=== PATIENT | male | born 1985 | race Caucasian/White ===

== ENCOUNTER → 2019-09-30 | Outpatient (CLI) | payer OTHER ==
[~2019-09-30] MED LIST: BUPR150T3 PO; FLUO40CA PO; LISI-538 PO
--- NOTE | 2019-09-30 12:15 | ECGEPIP ---
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
== END ==
LOC: M EKG 11:53
PROVIDERS: ATTEND Anesthesiology
DX: Z01.818 Encounter for other preprocedural examination (principal); R03.0 Elevated blood-pressure reading, without diagnosis of hypertension

== ENCOUNTER 2019-10-03 08:55 | Day surgery (SDC) | payer OTHER ==
[~2019-10-03] VITALS: Ht 180.3 cm; Wt 129.0 kg
[2019-10-03] MEDS ORDERED: fentaNYL 250 MCG/5 ML INJECTION (J3010) As Ordered ONE (11:50)
[2019-10-03] MEDS ORDERED: MIDAZOLAM INJ 2 MG/2 ML VIAL (J2250) As Ordered ONE (11:50)
[2019-10-03] MEDS ORDERED: propofoL 200 MG/20 ML VIAL As Ordered ONE (11:51)
[2019-10-03] MEDS ORDERED: ROCURONIUM BROMIDE 50 MG/5 ML VIAL As Ordered ONE (11:52)
[2019-10-03] MEDS ORDERED: dexameTHASONE 4 MG/ML 1ML VIAL (J1100) As Ordered ONE (11:53)
[2019-10-03] MEDS ORDERED: LIDOCAINE 2% INJ 100 MG/5 ML SDV (FOR ANES.) As Ordered ONE (11:53)
[2019-10-03] MEDS ORDERED: OXYMETAZOLINE NASAL SPRAY (AFRIN) As Ordered ONE (11:55)
[2019-10-03] MEDS ORDERED: METHYLENE BLUE 0.5% (5MG/ML) 10 ML AMP (PROVAYBLUE)(Q9968 PER 1MG) As Ordered ONE (11:55)
[2019-10-03] MEDS ORDERED: LIDOCAINE W/EPINEPHRINE 1% 20ML VIAL As Ordered ONE (11:55)
[2019-10-03] MEDS ORDERED: ACETAMINOPHEN 1000MG 100ML IV BTL (OFIRMEV) (J0131 PER 10MG) As Ordered ONE (12:43)
[2019-10-03] MEDS ORDERED: SUGAMMADEX SODIUM 500 MG/5 ML VIAL (BRIDION) As Ordered ONE (12:44)
[2019-10-03] MEDS ORDERED: ePHEDrine SULFATE 25 MG/5 ML(5MG/ML) SYRINGE As Ordered ONE (13:37)
[2019-10-03] MEDS ORDERED: fentaNYL 100 MCG/2 ML INJECTION (J3010) As Ordered ONE (13:57)
[2019-10-03] MEDS: fentaNYL 100 MCG/2 ML INJECTION (J3010) IV PRN ×4 (13:59→14:19)
[2019-10-03] MEDS ORDERED: oxyCODONE 5MG TAB PO PRN (14:00)
[2019-10-03] MEDS ORDERED: LR 1,000 ML IV SCH (14:00)
[2019-10-03] MEDS ORDERED: ONDANSETRON 4MG/2ML VIAL (J2405) IV PRN (14:00)
[2019-10-03] MEDS: HYDROMORPHONE HCL 0.5 MG/ 0.5 ML SYRINGE (J1170 PER 1) IV PRN ×4 (14:28→14:55)
[2019-10-03] MEDS ORDERED: IBUPROFEN 800 MG TAB PO PRN (15:16)
[2019-10-03] MEDS ORDERED: PERCOCET 5MG/325MG TAB PO PRN (15:16)
[2019-10-03 15:40] VITALS: BP 143/91
== END 2019-10-03 15:45 | disposition home or self-care (01) ==
LOC: M SDC 08:55
PROVIDERS: ATTEND Specialist
DX: J34.2 Deviated nasal septum (principal); I10 Essential (primary) hypertension; K21.9 Gastro-esophageal reflux disease without esophagitis; F41.9 Anxiety disorder, unspecified; F32.9 Major depressive disorder, single episode, unspecified; G43.909 Migraine, unspecified, not intractable, without status migrainosus; F17.220 Nicotine dependence, chewing tobacco, uncomplicated; Z79.899 Other long term (current) drug therapy
CPT/HCPCS: 30140; 30520; 88300; J0131; J1100; J1170; J2250; J3010; Q9968

== ENCOUNTER 2021-11-15 07:42 | Emergency (ER) | payer OTHER, SELFPAY ==
[~2021-11-15] VITALS: Ht 180.3 cm; Wt 118.2 kg
[~2021-11-15 07:42] MED LIST changes: +BUPR150T12 PO; -BUPR150T3 PO; -LISI-538 PO; +LISI20TA33 PO
[2021-11-15] MEDS ORDERED: BUSP15TA47 PO (07:54)
[2021-11-15] MEDS ORDERED: VENL75CA47 PO (07:54)
[2021-11-15 09:10] LABS: AMPHETAMINES LEVEL URINE NEGATIVE (NEGATIVE); BARBITURATES URINE NEGATIVE (NEGATIVE); BENZODIAZEPINES URINE NEGATIVE (NEGATIVE); CANNABINOIDS URINE POSITIVE (NEGATIVE); COCAINE METABOLITE URINE NEGATIVE (NEGATIVE); METHADONE URINE NEGATIVE (NEGATIVE); OPIATES URINE NEGATIVE (NEGATIVE); PHENCYCLIDINE URINE NEGATIVE (NEGATIVE)
[2021-11-15 09:19] LABS: HEMATOCRIT 46.2 % (42.0-52.0); HEMOGLOBIN 15.8 g/dl (13.5-17.5); MEAN CORPUSCULAR HEMOGLOBIN 30.2 pg (27.0-33.0); MEAN CORPUSCULAR HGB CONC 34.2 g/dl (32.0-36.5); MEAN CORPUSCULAR VOLUME 88.2 fl (80.0-96.0); PLATELET COUNT, AUTOMATED 252 10^3/uL (150-450); RED BLOOD COUNT 5.24 10^6/uL (4.30-6.10); WHITE BLOOD COUNT 11.1 10^3/uL (4.0-10.0)
[2021-11-15 09:20] LABS: RSV AMPLIFICATION NEGATIVE (NEGATIVE)
[2021-11-15 09:47] LABS: ACETAMINOPHEN LEVEL < 2.0 UG/ML (10.0-30.0); ALBUMIN 4.5 GM/DL (3.2-5.2); ALT/SGPT 39 U/L (12-78); BILIRUBIN,DIRECT 0.2 MG/DL (0.0-0.2); BILIRUBIN,TOTAL 0.8 MG/DL (0.2-1.0); BLOOD UREA NITROGEN 15 MG/DL (7-18); CALCIUM LEVEL 9.4 MG/DL (8.5-10.1); CARBON DIOXIDE LEVEL 27 MEQ/L (21-32); CHLORIDE LEVEL 106 MEQ/L (98-107); CREATININE FOR GFR 1.17 MG/DL (0.70-1.30); ETHYL ALCOHOL (ETHANOL) < 0.003 % (0.000-0.010); GLOMERULAR FILTRATION RATE > 60.0 (>60); GLUCOSE, FASTING 137 MG/DL (70-100); POTASSIUM SERUM 3.8 MEQ/L (3.5-5.1); SALICYLATE LEVEL < 1.7 MG/DL (5.0-30.0); SODIUM LEVEL 141 MEQ/L (136-145); THYROID STIMULATING HORMONE 0.583 uIU/ML (0.358-3.740); TOTAL PROTEIN 7.3 GM/DL (6.4-8.2)
[2021-11-15] MEDS ORDERED: LORazepam 2 MG TAB PO STA (12:12)
[2021-11-15] MEDS ORDERED: OLANZapine ORAL DISINTEGRATING TAB 5MG PO ONE (14:50)
[2021-11-15] MEDS ORDERED: FAMO1TAB11 PO (18:13)
[2021-11-15] MEDS ORDERED: ALBU8.5H INH (18:13)
[2021-11-15] MEDS ORDERED: COMMENTS (18:15)
[2021-11-15] MEDS ORDERED: HOME MED LIST COMPLETE! XX SCH (18:15)
[2021-11-16 04:12] LABS: APPEARANCE, URINE HAZY (CLEAR); BACTERIA, URINE AUTO NEGATIVE (NEGATIVE); BILIRUBIN, URINE AUTO NEGATIVE (NEGATIVE); BLOOD, URINE BLOOD NEGATIVE (NEGATIVE); COLOR, URINE AMBER (YELLOW); GLUCOSE, URINE (UA) AUTO NEGATIVE (NEGATIVE); KETONE, URINE AUTO TRACE mg/dL (NEGATIVE); LEUKOCYTE ESTERASE, URINE AUTO NEGATIVE (NEGATIVE); MUCUS, URINE SMALL (NEGATIVE); NITRITE, URINE AUTO NEGATIVE (NEGATIVE); PROTEIN, URINE AUTO 1+ mg/dL (NEGATIVE); RBC, URINE AUTO 1 /HPF (0-3); SQUAMOUS EPITHELIAL CELL UR AU 0 /HPF (0-6); WBC, URINE AUTO 0 /HPF (0-3)
[2021-11-16] MEDS ORDERED: IBUPROFEN 800 MG TAB PO ONE ×4 (05:15→18:40)
[2021-11-16] MEDS: busPIRone 5 MG TAB PO SCH ×2 (08:32→18:41)
[2021-11-16] MEDS ORDERED: FAMOTIDINE 20 MG TAB PO SCH (09:00)
[2021-11-16] MEDS ORDERED: VENLAFAXINE **XR** 75MG CAPSULE PO SCH (09:00)
[2021-11-16] MEDS ORDERED: NICOTINE 21MG/24HR 1 EA TRANSDERMAL TD ONE (11:35)
[2021-11-16] MEDS ORDERED: ANALGESIC BALM CRM 3OZ TOP SCH (12:00)
[2021-11-16] MEDS: ANALGESIC BALM CRM 3OZ TOP SCH ×3 (12:33→18:41)
[2021-11-16] MEDS: ACETAMINOPHEN 325 MG TAB PO ONE ×2 (13:20→13:35)
[2021-11-16 18:59] VITALS: BP 146/9
== END 2021-11-16 19:01 ==
LOC: M ED 07:42
DX: F31.5 Bipolar disorder, current episode depressed, severe, with psychotic features (principal); F32.9 Major depressive disorder, single episode, unspecified; F43.10 Post-traumatic stress disorder, unspecified; F12.10 Cannabis abuse, uncomplicated; Z81.8 Family history of other mental and behavioral disorders

== ENCOUNTER → 2022-06-18 | Outpatient (CLI) | payer OTHER ==
[~2022-06-18] MED LIST changes: +ALBU8.5H INH; +BUSP15TA47 PO; +COMMENTS; +FAMO1TAB11 PO; +VENL75CA47 PO
== END ==
LOC: M PAIN 08:00
PROVIDERS: ATTEND Nurse Practitioner Family
DX: M54.16 Radiculopathy, lumbar region (principal); Z79.899 Other long term (current) drug therapy

== ENCOUNTER → 2022-07-14 | Outpatient (CLI) | payer OTHER | LOC: M PAIN 14:30 | PROVIDERS: ATTEND Anesthesiology | DX: M47.816 Spondylosis without myelopathy or radiculopathy, lumbar region (principal); M54.50 Low back pain, unspecified; Z79.899 Other long term (current) drug therapy ==

== ENCOUNTER → 2022-08-26 | Outpatient (CLI) | payer OTHER | LOC: M PAIN 15:30 | PROVIDERS: ATTEND Anesthesiology | DX: M79.18 Myalgia, other site (principal); M47.816 Spondylosis without myelopathy or radiculopathy, lumbar region; G89.29 Other chronic pain; E66.01 Morbid (severe) obesity due to excess calories; Z68.41 Body mass index [BMI] 40.0-44.9, adult; Z79.899 Other long term (current) drug therapy ==

== ENCOUNTER → 2022-11-03 | Outpatient (CLI) | payer OTHER | LOC: M LABSMTC 11:50 | PROVIDERS: ATTEND Anesthesiology | DX: Z11.52 Encounter for screening for COVID-19 (principal) ==

== ENCOUNTER → 2022-11-03 | Outpatient (CLI) | payer OTHER | LOC: M PAIN 16:00 | PROVIDERS: ATTEND Anesthesiology | DX: Z53.8 Procedure and treatment not carried out for other reasons (principal) ==

== ENCOUNTER → 2022-11-19 | Outpatient (CLI) | payer OTHER ==
[~2022-11-19] MED LIST changes: +CEPH500C PO
== END ==
LOC: M PAIN 16:30
PROVIDERS: ATTEND Anesthesiology
DX: M79.18 Myalgia, other site (principal); Z79.899 Other long term (current) drug therapy

== ENCOUNTER 2022-11-26 11:03 | Emergency (ER) | payer OTHER ==
[~2022-11-26] VITALS: Ht 180.3 cm; Wt 127.3 kg
[~2022-11-26 11:03] MED LIST changes: -CEPH500C PO
[2022-11-26 11:07] VITALS: BP 138/92
[2022-11-26] MEDS ORDERED: IBUPROFEN 800 MG TAB PO ONE (12:45)
[2022-11-26] MEDS ORDERED: BOOSTRIX/ADACEL VACCINE (DIPHTH/PERTUSS/ACELL/TETANUS) 0.5ML SYR IM ONE (12:45)
[2022-11-26] MEDS ORDERED: LIDOCAINE 1% MDV 20ML VIAL INFIL ONE (13:20)
[2022-11-26] MEDS ORDERED: CEPH500C PO (13:50)
[2022-11-26] MEDS ORDERED: NEOSPORIN OINT 0.9 GM PKT TOP ONE (14:00)
== END 2022-11-26 14:10 | disposition home or self-care (01) ==
LOC: M ED 11:03
DX: S61.211A Laceration without foreign body of left index finger without damage to nail, initial encounter (principal); W23.1XXA Caught, crushed, jammed, or pinched between stationary objects, initial encounter; Y93.89 Activity, other specified; Y99.0 Civilian activity done for income or pay; I10 Essential (primary) hypertension; G47.33 Obstructive sleep apnea (adult) (pediatric); F41.9 Anxiety disorder, unspecified; F32.9 Major depressive disorder, single episode, unspecified; Z79.899 Other long term (current) drug therapy

== ENCOUNTER → 2024-07-21 | Outpatient (CLI) | payer OTHER ==
[~2024-07-21] MED LIST changes: +CEPH500C PO
== END ==
LOC: M PLARAD 15:01
PROVIDERS: ATTEND Family Medicine
DX: M51.16 Intervertebral disc disorders with radiculopathy, lumbar region (principal)

== ENCOUNTER 2024-10-23 17:10 | Emergency (ER) | payer OTHER ==
[~2024-10-23] VITALS: Ht 180.3 cm; Wt 117.1 kg
[2024-10-23 17:12] VITALS: BP 136/79; TEMP 99.9; O2SAT 97
[2024-10-23 19:39] LABS: BASO # 0.1 10^3/uL (0.0-0.2); BASO % 0.7 % (0.0-1.0); EOS # 0.1 10^3/uL (0.0-0.5); HEMATOCRIT 44.7 % (42.0-52.0); HEMOGLOBIN 15.5 g/dl (13.5-17.5); LYMPH # 2.3 10^3/uL (1.5-5.0); LYMPH % 22.5 % (24.0-44.0); MEAN CORPUSCULAR HEMOGLOBIN 30.6 pg (27.0-33.0); MEAN CORPUSCULAR HGB CONC 34.7 g/dl (32.0-36.5); MEAN CORPUSCULAR VOLUME 88.2 fl (80.0-96.0); MONO # 0.7 10^3/uL (0.0-0.8); MONO % 6.6 % (2.0-8.0); NEUTROPHILS # 7.1 10^3/uL (1.5-8.5); NEUTROPHILS % 68.7 % (36.0-66.0); PLATELET COUNT, AUTOMATED 236 10^3/uL (150-450); RED BLOOD COUNT 5.07 10^6/uL (4.30-6.10); WHITE BLOOD COUNT 10.4 10^3/uL (4.0-10.0)
[2024-10-23 19:47] LABS: ERYTHROCYTE SEDIMENTATION RATE 11 mm/hr (0-15)
[2024-10-23 19:59] LABS: BLOOD UREA NITROGEN 15 MG/DL (9-23); C REACTIVE PROTEIN QUANTITATIV < 0.50 MG/DL (<1.0); CALCIUM LEVEL 9.1 MG/DL (8.5-10.1); CARBON DIOXIDE LEVEL 29 MMOL/L (20-31); CHLORIDE LEVEL 104 MMOL/L (98-107); CREATININE FOR GFR 0.95 MG/DL (0.70-1.30); GLOMERULAR FILTRATION RATE > 60.0 (>60); GLUCOSE, FASTING 81 MG/DL (60-100); POTASSIUM SERUM 3.4 MMOL/L (3.5-5.1); SODIUM LEVEL 142 MMOL/L (136-145)
== END 2024-10-23 20:59 | disposition home or self-care (01) ==
LOC: M ED 17:10
DX: M25.522 Pain in left elbow (principal); I10 Essential (primary) hypertension; M54.9 Dorsalgia, unspecified; F41.9 Anxiety disorder, unspecified; F32.A Depression, unspecified; Z79.899 Other long term (current) drug therapy

== ENCOUNTER → 2024-10-30 | Outpatient (CLI) | payer OTHER ==
[~2024-10-30] MED LIST changes: +AMOX875T2 PO; +DOXY-440 PO; +OLAN15TA69 PO; +OMEGA-3 1000MG CAPSULE ONE; +OXYC-517 PO; +PROHANCE 279.3MG/ML 15ML VIAL ONE; +PROHANCE 279.3MG/ML 5ML VIAL ONE; +ROSU40TA81 PO; +TADA20TA PO; +TIZA10TA PO; +TRAZ-252 PO
== END ==
LOC: M PLAIMG 14:15
PROVIDERS: ATTEND Orthopaedic Surgery Hand Surgery
DX: M25.522 Pain in left elbow (principal); R22.32 Localized swelling, mass and lump, left upper limb

== ENCOUNTER 2024-11-01 06:51 | Inpatient (IN) | payer OTHER ==
[~2024-11-01] VITALS: Ht 180.3 cm; Wt 117.2 kg
[2024-11-01] VITALS (8 sets, daily range): BP systolic 125–148; BP diastolic 63–86; TEMP 97.2–97.9; O2SAT 92–96
[~2024-11-01 06:51] MED LIST changes: -AMOX875T2 PO; -DOXY-440 PO; -OMEGA-3 1000MG CAPSULE ONE; -PROHANCE 279.3MG/ML 15ML VIAL ONE; -PROHANCE 279.3MG/ML 5ML VIAL ONE
[2024-11-01] MEDS: LIDOCAINE 1% SDV 30ML VIAL As Ordered ONE (07:16)
[2024-11-01] MEDS ORDERED: MIDAZOLAM INJ 2MG/2ML VIAL As Ordered ONE (07:28)
[2024-11-01] MEDS ORDERED: LIDOCAINE 2% 100MG/5ML SDV (FOR ANES.) As Ordered ONE (07:28)
[2024-11-01] MEDS ORDERED: fentaNYL 100 MCG/2 ML INJECTION As Ordered ONE (07:28)
[2024-11-01] MEDS ORDERED: propofoL 200 MG/20 ML VIAL As Ordered ONE (07:28)
[2024-11-01] MEDS: ceFAZolin SOD 2 GM IV ONCE IV ONE (08:05)
[2024-11-01] MEDS: ceFAZolin SODIUM 2 GM VIAL As Ordered ONE (08:08)
[2024-11-01] MEDS ORDERED: ONDANSETRON 4MG 2ML VIAL As Ordered ONE (08:18)
[2024-11-01] MEDS ORDERED: ACETAMINOPHEN 1000MG/100ML IV BAG As Ordered ONE (08:31)
[2024-11-01] MEDS ORDERED: KETOROLAC 30 MG/ML 1ML VIAL As Ordered ONE (08:34)
[2024-11-01] MEDS: BACITRACIN OINTMENT 30GM TUBE As Ordered ONE (09:00)
[2024-11-01] MEDS ORDERED: tiZANidine 4 MG TAB PO PRN (11:15)
[2024-11-01] MEDS ORDERED: ALBUTEROL SULFATE 2.5MG/0.5ML INH NEB SOLN NEB PRN (11:15)
[2024-11-01 11:50] LABS: HEMOGLOBIN 15.7 g/dl (13.5-17.5); MEAN CORPUSCULAR HEMOGLOBIN 30.4 pg (27.0-33.0); MEAN CORPUSCULAR HGB CONC 34.1 g/dl (32.0-36.5); MEAN CORPUSCULAR VOLUME 89.1 fl (80.0-96.0); PLATELET COUNT, AUTOMATED 196 10^3/uL (150-450); RED BLOOD COUNT 5.16 10^6/uL (4.30-6.10); WHITE BLOOD COUNT 8.2 10^3/uL (4.0-10.0)
[2024-11-01 12:14] LABS: BLOOD UREA NITROGEN 15 MG/DL (9-23); CALCIUM LEVEL 8.9 MG/DL (8.5-10.1); CARBON DIOXIDE LEVEL 26 MMOL/L (20-31); CHLORIDE LEVEL 108 MMOL/L (98-107); CREATININE FOR GFR 0.88 MG/DL (0.70-1.30); GLOMERULAR FILTRATION RATE > 60.0 (>60); GLUCOSE, FASTING 112 MG/DL (60-100); SODIUM LEVEL 142 MMOL/L (136-145)
[2024-11-01] MEDS: ACETAMINOPHEN 325 MG TAB PO PRN (12:34)
[2024-11-01] MEDS ORDERED: HOME MED LIST COMPLETE! XX SCH (12:35)
[2024-11-01] MEDS ORDERED: VANCOMYCIN HCL 1,000 MG, VIAL MATE ADAPTER 1 EACH in NS 250 ML IV SCH (14:15)
[2024-11-01 14:37] LABS: ALBUMIN 3.9 G/DL (3.2-5.2); ALKALINE PHOSPHATASE 92 U/L (40-129); ALT/SGPT 51 U/L (7.0-40); AST/SGOT 28 U/L (<34); BILIRUBIN,DIRECT 0.1 MG/DL (<0.4); BILIRUBIN,TOTAL 0.3 MG/DL (0.3-1.2)
[2024-11-01] MEDS: oxyCODONE 5MG TAB PO ONE (15:31)
[2024-11-01] MEDS: PIPERACILLIN/TAZOBACTAM SOD 3.375 GM in DEXTROSE 5% (D5W) ADV/MINI-BAG 50 ML IV SCH (16:02)
[2024-11-01] MEDS: VANCOMYCIN HCL 2,000 MG, VIAL MATE ADAPTER 1 EACH in NS 500 ML IV ONE (16:53)
[2024-11-01] MEDS: OLANZapine 5 MG TAB PO SCH (20:43)
[2024-11-01] MEDS: traZODone 100 MG TAB PO SCH (20:43)
[2024-11-01] MEDS: ROSUVASTATIN 10 MG TAB (CRESTOR) PO SCH (20:43)
[2024-11-01] MEDS: busPIRone 10 MG TAB PO SCH (20:43)
[2024-11-01] MEDS: oxyCODONE 5MG TAB PO SCH (20:44)
[2024-11-02] MEDS: VANCOMYCIN HCL 1,250 MG, VIAL MATE ADAPTER 1 EACH in NS 250 ML IV SCH (00:20)
[2024-11-02 00:45] VITALS: BP 140/81; TEMP 97.9; O2SAT 93
[2024-11-02 04:45] VITALS: BP 134/78; TEMP 97.7; O2SAT 94
[2024-11-02 08:09] LABS: BASO # 0.1 10^3/uL (0.0-0.2); BASO % 0.4 % (0.0-1.0); EOS % 0.3 % (0.0-3.0); HEMATOCRIT 42.7 % (42.0-52.0); HEMOGLOBIN 14.9 g/dl (13.5-17.5); LYMPH # 2.3 10^3/uL (1.5-5.0); LYMPH % 19.7 % (24.0-44.0); MEAN CORPUSCULAR HEMOGLOBIN 30.3 pg (27.0-33.0); MEAN CORPUSCULAR HGB CONC 34.9 g/dl (32.0-36.5); MEAN CORPUSCULAR VOLUME 86.8 fl (80.0-96.0); MONO # 0.7 10^3/uL (0.0-0.8); MONO % 5.6 % (2.0-8.0); NEUTROPHILS # 8.6 10^3/uL (1.5-8.5); NEUTROPHILS % 73.7 % (36.0-66.0); PLATELET COUNT, AUTOMATED 202 10^3/uL (150-450); RED BLOOD COUNT 4.92 10^6/uL (4.30-6.10); WHITE BLOOD COUNT 11.7 10^3/uL (4.0-10.0)
[2024-11-02 08:35] LABS: VANCOMYCIN LEVEL TROUGH 13.9 UG/ML (10.0-20.0)
[2024-11-02 08:36] LABS: BLOOD UREA NITROGEN 15 MG/DL (9-23); C REACTIVE PROTEIN QUANTITATIV < 0.50 MG/DL (<1.0); CALCIUM LEVEL 8.9 MG/DL (8.5-10.1); CARBON DIOXIDE LEVEL 26 MMOL/L (20-31); CHLORIDE LEVEL 109 MMOL/L (98-107); CREATININE FOR GFR 0.94 MG/DL (0.70-1.30); GLOMERULAR FILTRATION RATE > 60.0 (>60); GLUCOSE, FASTING 91 MG/DL (60-100); POTASSIUM SERUM 4.2 MMOL/L (3.5-5.1); SODIUM LEVEL 146 MMOL/L (136-145)
[2024-11-02 08:45] VITALS: BP 148/74; TEMP 98.1; O2SAT 96
[2024-11-02] MEDS ORDERED: FAMOTIDINE 20 MG TAB PO PRN (09:00)
[2024-11-02 12:00] VITALS: BP 123/73; TEMP 97.9; O2SAT 95
[2024-11-02 20:13] VITALS: BP 163/88; TEMP 97.2; O2SAT 97
[2024-11-03 04:17] VITALS: BP 134/86; TEMP 97.9; O2SAT 97
[2024-11-03 05:45] LABS: BASO # 0.1 10^3/uL (0.0-0.2); BASO % 0.9 % (0.0-1.0); EOS # 0.1 10^3/uL (0.0-0.5); EOS % 0.9 % (0.0-3.0); HEMATOCRIT 41.6 % (42.0-52.0); HEMOGLOBIN 14.6 g/dl (13.5-17.5); MEAN CORPUSCULAR HEMOGLOBIN 30.9 pg (27.0-33.0); MEAN CORPUSCULAR HGB CONC 35.1 g/dl (32.0-36.5); MEAN CORPUSCULAR VOLUME 87.9 fl (80.0-96.0); MONO # 0.6 10^3/uL (0.0-0.8); MONO % 7.6 % (2.0-8.0); NEUTROPHILS % 51.3 % (36.0-66.0); PLATELET COUNT, AUTOMATED 197 10^3/uL (150-450); RED BLOOD COUNT 4.73 10^6/uL (4.30-6.10); WHITE BLOOD COUNT 7.8 10^3/uL (4.0-10.0)
[2024-11-03 05:46] LABS: HEMATOCRIT 42.3 % (42.0-52.0); HEMOGLOBIN 14.5 g/dl (13.5-17.5); MEAN CORPUSCULAR HEMOGLOBIN 30.5 pg (27.0-33.0); MEAN CORPUSCULAR HGB CONC 34.3 g/dl (32.0-36.5); MEAN CORPUSCULAR VOLUME 88.9 fl (80.0-96.0); PLATELET COUNT, AUTOMATED 191 10^3/uL (150-450); RED BLOOD COUNT 4.76 10^6/uL (4.30-6.10); WHITE BLOOD COUNT 7.6 10^3/uL (4.0-10.0)
[2024-11-03 06:08] LABS: BLOOD UREA NITROGEN 13 MG/DL (9-23); CALCIUM LEVEL 8.8 MG/DL (8.5-10.1); CARBON DIOXIDE LEVEL 25 MMOL/L (20-31); CHLORIDE LEVEL 109 MMOL/L (98-107); CREATININE FOR GFR 1.01 MG/DL (0.70-1.30); GLOMERULAR FILTRATION RATE > 60.0 (>60); GLUCOSE, FASTING 84 MG/DL (60-100); POTASSIUM SERUM 4.6 MMOL/L (3.5-5.1); SODIUM LEVEL 146 MMOL/L (136-145)
[2024-11-03 12:00] VITALS: BP 126/70; TEMP 97.9; O2SAT 94
[2024-11-03] MEDS ORDERED: DOXY-440 PO (12:14)
[2024-11-03] MEDS ORDERED: AMOX875T2 PO (12:14)
[2024-11-03] MEDS: VANCOMYCIN HCL 1,000 MG, VIAL MATE ADAPTER 1 EACH in NS 250 ML IV SCH (12:27)
== END 2024-11-03 14:02 | disposition home or self-care (01) | DRG 572 ==
LOC: M SDC 06:51 → M RR INP 11:09 → M MS5PR 11:45
PROVIDERS: ADMIT Student in an Organized Health Care Education/Training Program; ATTEND Orthopaedic Surgery Hand Surgery
PROC: 0JBF0ZZ Excision of Left Upper Arm Subcutaneous Tissue and Fascia, Open Approach (ICD-10-PCS; principal; 2024-11-01 08:15)
DX: L02.414 Cutaneous abscess of left upper limb (principal); F39 Unspecified mood [affective] disorder; G89.29 Other chronic pain; K21.9 Gastro-esophageal reflux disease without esophagitis; E78.5 Hyperlipidemia, unspecified; F17.290 Nicotine dependence, other tobacco product, uncomplicated; M54.9 Dorsalgia, unspecified; Z79.891 Long term (current) use of opiate analgesic; Z79.899 Other long term (current) drug therapy